=== PATIENT | female | born 1945 | race Caucasian/White ===

== ENCOUNTER 2016-11-27 22:33 | Emergency (ER) | payer MEDICARE, OTHER ==
[2016-11-27 22:46] VITALS: BP 166/119
--- NOTE | 2016-11-28 00:40 | ED ---
Upper Extremity Pain - HPI Summary HPI Summary: Patient presents with 2 1/2 weeks of right wrist pain that began when she "just turned her wrist" and heard a loud pop. She saw her PCP who advised rest, ibuprofen and a neoprene brace for support. Her pain has continued and she worries something is broken. She denies previous injury to this wrist and only has pain when she supinates her wrist. She denies N/T, swelling or bruising. She is left handed but uses the right hand for many tasks. - History of Current Complaint Chief Complaint: EDExtremityUpper Stated Complaint: RIGHT WRIST PAIN Time Seen by Provider: 11/27/16 23:04 Hx Obtained From: Patient Mechanism Of Injury: Twisted Onset/Duration: Started Weeks Ago - 2.5, Atraumatic, Still Present Timing: Constant Severity Initially: Moderate Severity Currently: Moderate Pain Location: Wrist - right Character: Dull, Aching Aggravating Factor(s): Other - supination Alleviating Factor(s): Rest Associated Signs & Symptoms: Positive: Negative Related History: Dominant Hand Left - Allergies/Home Medications Allergies/Adverse Reactions: Allergies Allergy/AdvReac Type Severity Reaction Status Date / Time Penicillins Allergy Severe Hives Verified 11/27/16 22:46 Sulfa Drugs Allergy Severe Hives Verified 11/27/16 22:46 SPIDER BITES Allergy Severe Swelling Uncoded 11/27/16 22:46 BEE STINGS Allergy Intermediate Hives Uncoded 11/27/16 22:46 PMH/Surg Hx/FS Hx/Imm Hx Endocrine/Hematology History: Denies: Hx Diabetes Cardiovascular History: Reports: Hx Hypertension, Hx Myocardial Infarction Denies: Hx Congestive Heart Failure Respiratory History: Reports: Hx Chronic Obstructive Pulmonary Disease (COPD), Hx Pneumonia History: Reports: Hx Kidney Stones Denies: Hx Dialysis, Hx Renal Disease Musculoskeletal History: Reports: Hx Back Problems - DDD Sensory History: Reports: Hx Contacts or Glasses - Right eye Opthamlomology History: Reports: Hx Contacts or Glasses - Right eye Neurological History: Reports: Other Neuro Impairments/Disorders - traumatic brain injury Denies: Hx Migraine, Hx Seizures, Hx Spinal Cord Injury - Surgical History Surgery Procedure, Year, and Place: HYSTERECTOMY, PARATHYROID SURGERY, tonsils 5 times in surgery - Immunization History Date of Tetanus Vaccine: no Date of Influenza Vaccine: no Infectious Disease History: No Infectious Disease History: Denies: Hx Clostridium Difficile, Hx Hepatitis, Hx Human Immunodeficiency Virus (HIV), Hx of Known/Suspected MRSA, Hx Shingles, Hx Tuberculosis, Hx Known/ Suspected VRE, Hx Known/Suspected VRSA, History Other Infectious Disease, Traveled Outside the [place] in Last 30 Days - Family History Known Family History: Positive: None - Social History Occupation: Employed Full-time Lives: With Family Alcohol Use: None Hx Substance Use: No Substance Use Type: Reports: None Hx Tobacco Use: Yes Smoking Status (MU): Former Smoker Have You Smoked in the Last Year: Yes Review of Systems Positive: Arthralgia - right wrist, Decreased ROM - supination. Negative: Edema Negative: Bruising Negative: Weakness, Paresthesia, Numbness All Other Systems Reviewed And Are Negative: Yes Physical Exam Triage Information Reviewed: Yes Vital Signs On Initial Exam: Initial Vitals Temp Pulse Resp BP Pulse Ox 98.4 F 69 15 166/119 99 11/27/16 22:40 11/27/16 22:40 11/27/16 22:40 11/27/16 22:40 11/27/16 22:40 Vital Signs Reviewed: Yes Appearance: Positive: Well-Appearing, Well-Nourished, Pain Distress Skin: Positive: Warm, Skin Color Reflects Adequate Perfusion, Dry, Soft Head/Face: Positive: Normal Head/Face Inspection Eyes: Positive: EOMI, ASHLEY, Conjunctiva Clear ENT: Positive: Hearing grossly normal Respiratory/Lung Sounds: Positive: Breath Sounds Present Cardiovascular: Positive: RRR Musculoskeletal: Positive: Limited @ - FROM except for supination, which is limited to 60 degrees due to pain, Pain @ - TTP ulnar aspect of distal forearm Neurological: Positive: Sensory/Motor Intact, Alert, Oriented to Person Place, Time, NV Bundle Intact Distally, Normal Gait Psychiatric: Positive: Affect/Mood Appropriate AVPU Assessment: Alert - [place] Coma Scale Coma Scale Total: 15 Procedures - Splinting Location: right wrist Pre-Made Type: metal Splint: wrist Pre-Proc Neuro Vasc Exam: normal Post-Proc Neuro Vasc Exam: normal Diagnostics - Vital Signs Vital Signs Temp Pulse Resp BP Pulse Ox 11/28/16 00:31 98 F 69 16 166/119 11/27/16 22:40 98.4 F 69 15 166/119 99 - Laboratory Lab Statement: Any lab studies that have been ordered have been reviewed, and results considered in the medical decision making process. - Radiology No standard instances Xray Interpretation: No Acute Changes Radiology Interpretation Completed By: ED Physician - No obvious deformity Course/Dx - Diagnoses Differential Diagnosis/HQI/PQRI: Positive: Arthritis, Bursitis, Contusion, Fracture (Closed), Hematoma, Strain, Sprain Provider Diagnoses: Right wrist pain Discharge - Discharge Plan Condition: Stable Disposition: HOME Patient Education Materials: Wrist Injury (ED) Referrals: Amauri Braswell MD [Medical Doctor] - Additional Instructions: Please wear the brace to protect your wrist. Use ibuprofen 400-600mg three times daily with meals for the next 5-7 days to decrease swelling and pain. Call Dr. Braswell's office with orthopedics tomorrow for an appointment in the next 1-2 weeks. Return to the emergency department if symptoms worsen.
--- NOTE | 2016-11-28 07:42 | RAD ---
INDICATION: Right wrist pain. TECHNIQUE: 3 views of the right wrist were obtained. FINDINGS: There is mild diffuse soft tissue swelling present. The bones are osteopenic. There is ulnar minus variance of approximately 4 mm. The bones are otherwise in normal alignment. No fracture is seen. IMPRESSION: NO EVIDENCE FOR FRACTURE, IF THE PATIENT'S SYMPTOMS PERSIST RECOMMEND FOLLOW-UP IMAGING.
== END 2016-11-28 00:31 | disposition home or self-care (01) ==
LOC: ED 22:33
DX: M25.531 Pain in right wrist (principal); Z87.891 Personal history of nicotine dependence
CPT/HCPCS: 99282

== ENCOUNTER 2018-12-14 23:14 | Emergency (ER) | payer MEDICARE ==
--- NOTE | 2018-12-14 23:41 | ED ---
Hypertension - HPI Summary HPI Summary: A 73 y/o female presents to [facility] with a chief complaint of high blood pressure today. The patient reports that she was at her friends house when she used their BP monitor because she was feeling fatigued for the past few weeks. Her BP was 244/108 and so she came to the ED. She denies CP. She claims that she is usually short of breath after her traumatic brain injury, but does not believe that it has worsened. She has had high blood pressure before but does not take medication for it. She denies any change in diet. She notes that she had two cups containing caffeine in the morning and one tonight. She also reports a Hx of [place]. - History of Current Complaint Chief Complaint: EDHypertension Stated Complaint: "HIGH BP/TIREDNESS" PER PT Time Seen by Provider: 12/14/18 23:32 Hx Obtained From: Patient Onset/Duration: Started Hours Ago, Still Present Timing: Constant Reported Blood Pressure Prior To Arrival: 244/108 Aggravating Factor(s): Nothing Alleviating Factor(s): Nothing Associated Signs & Symptoms: Negative - Chest pain, worsened SOB - Allergies/Home Medications Allergies/Adverse Reactions: Allergies Allergy/AdvReac Type Severity Reaction Status Date / Time MS Penicillins [Penicillins] Allergy Severe Hives Verified 11/27/16 22:46 MS Sulfa Drugs [Sulfa Drugs] Allergy Severe Hives Verified 11/27/16 22:46 Penicillins Allergy Hives Verified 12/14/18 23:21 Sulfa (Sulfonamide Allergy Hives Verified 12/14/18 23:21 Antibiotics) SPIDER BITES Allergy Severe Swelling Uncoded 11/27/16 22:46 BEE STINGS Allergy Intermediate Hives Uncoded 11/27/16 22:46 PMH/Surg Hx/FS Hx/Imm Hx Endocrine/Hematology History: Denies: Hx Diabetes Cardiovascular History: Reports: Hx Hypertension, Hx Myocardial Infarction Denies: Hx Congestive Heart Failure Respiratory History: Reports: Hx Chronic Obstructive Pulmonary Disease (COPD), Hx Pneumonia History: Reports: Hx Kidney Stones Denies: Hx Dialysis, Hx Renal Disease Musculoskeletal History: Reports: Hx Back Problems - DDD Sensory History: Reports: Hx Contacts or Glasses - Right eye Opthamlomology History: Reports: Hx Contacts or Glasses - Right eye Neurological History: Reports: Other Neuro Impairments/Disorders - traumatic brain injury Denies: Hx Migraine, Hx Seizures, Hx Spinal Cord Injury - Surgical History Surgery Procedure, Year, and Place: HYSTERECTOMY, PARATHYROID SURGERY, tonsils 5 times in surgery - Immunization History Date of Tetanus Vaccine: no Date of Influenza Vaccine: no Infectious Disease History: No Infectious Disease History: Denies: Hx Clostridium Difficile, Hx Hepatitis, Hx Human Immunodeficiency Virus (HIV), Hx of Known/Suspected MRSA, Hx Shingles, Hx Tuberculosis, Hx Known/ Suspected VRE, Hx Known/Suspected VRSA, History Other Infectious Disease, Traveled Outside the [place] in Last 30 Days - Family History Known Family History: Negative: Blood Disorder - Social History Alcohol Use: None Hx Substance Use: No Substance Use Type: Reports: None Hx Tobacco Use: Yes Smoking Status (MU): Former Smoker Have You Smoked in the Last Year: Yes Review of Systems Positive: Fatigue. Negative: Fever Positive: Other - positive: high blood pressure. Negative: Chest Pain Negative: Shortness Of Breath - worsened All Other Systems Reviewed And Are Negative: Yes Physical Exam - Summary Physical Exam Summary: Appearance: Well-appearing, Well-nourished, lying in bed comfortably Skin: Warm, dry, no obvious rash Eyes: sclera anicteric, no conjunctival pallor ENT: mucous membranes moist, pharynx appears normal Neck: Supple, nontender Respiratory: Clear to auscultation, no signs of respiratory distress Cardiovascular: Normal S1, S2. No murmurs. Normal distal pulses in tibial and radial bilaterally. Abdomen: Soft, nontender, normal active bowel sounds present Musculoskeletal: Normal, Strength/ROM Intact Neurological: A&Ox3, awake and alert, mentation is normal, speech is fluent and appropriate Psychiatric: affect is normal, does not appear anxious or depressed Triage Information Reviewed: Yes Vital Signs On Initial Exam: Initial Vitals Temp Pulse Resp BP Pulse Ox 97.8 F 89 18 223/113 97 12/14/18 23:16 12/14/18 23:16 12/14/18 23:16 12/14/18 23:16 12/14/18 23:16 Vital Signs Reviewed: Yes Diagnostics - Vital Signs Vital Signs Temp Pulse Resp BP Pulse Ox 12/14/18 23:16 97.8 F 89 18 223/113 97 - Laboratory Result Diagrams: 12/15/18 00:00 12/15/18 00:00 Lab Statement: Any lab studies that have been ordered have been reviewed, and results considered in the medical decision making process. - Radiology CXR Radiology Interpretation Completed By: ED Physician Summary of Radiographic Findings: no acute process. Pending official imaging report. - EKG 00:40 Cardiac Rate: NL - 70 bpm EKG Rhythm: Sinus Rhythm Summary of EKG Findings: NSR at 70 BPM, P waves, QRS complex, and T waves are within normal limits, T waves and intervals are normal, no ischemic changes. This is a normal EKG. Hypertension Course/Dx - Course Course Of Treatment: A 73 y/o female presents to [facility] with a chief complaint of high blood pressure today. The patient reports that she was at her friends house when she used their BP monitor because she was feeling fatigued for the past few weeks. The physical exam was unremarkable. CXR showed no acute process. EKG at 00:40 showed NSR at 70 BPM, P waves, QRS complex, and T waves are within normal limits, T waves and intervals are normal, no ischemic changes. This is a normal EKG. Bloodwork and chemistries obtained and are WNL. Urines obtained. Urine blood 1+, Urine RBC 1+, Ur Squamous Epith Cells present. The patient will be discharged home and follow up with her PCP. The patient is agreeable with this plan. - Diagnoses Provider Diagnoses: High blood pressure, Fatigue Discharge - Sign-Out/Discharge Documenting (check all that apply): Patient Departure - DC Patient Received Moderate/Deep Sedation with Procedure: No - Discharge Plan Condition: Good Disposition: HOME Patient Education Materials: Hypertension (ED) Referrals: Maribel Thao MD [Primary Care Provider] - 2 Days Additional Instructions: The tests we did tonight did not show any acute injury to you from the elevated blood pressure, which is what I expected. By definition we cannot diagnose hypertension with one day's worth of readings, so I would recommend you check in with your primary care provider on Sunday and schedule a followup visit. I would not recommend any medication for this problem at present. - Billing Disposition and Condition Condition: GOOD Disposition: Home - Attestation Statements Document Initiated by Scribe: Yes Documenting Scribe: Braulio Truong Provider For Whom Scribe is Documenting (Include Credential): Carlo Cha MD Scribe Attestation: I, Braulio Truong, scribed for Carlo Cha MD on 12/16/18 at 1311. Scribe Documentation Reviewed: Yes Provider Attestation: The documentation as recorded by the scribe, Braulio Truong accurately reflects the service I personally performed and the decisions made by me, Carlo Cha MD Status of Scribe Document: Viewed
[2018-12-15 00:18] LABS: ABS Basophils 0.1 10^3/ul (0-0.2); ABS Eosinophils 0.3 10^3/ul (0-0.6); ABS Lymphocytes 3.5 10^3/ul (1.0-4.8); ABS Monocytes 1.1 10^3/ul (0-0.8); ABS Neutrophils 4.7 10^3/ul (1.5-7.7); ABS Nucleated RBC 0 10^3/ul; Eosinophil % 3.1 %; Hematocrit 43 % (33-41); Hemoglobin 14.8 g/dL (12.0-16.0); Lymphocyte % 36.3 %; Mean Corpuscular HGB Conc 34 g/dL (31-36); Mean Corpuscular Hemoglobin 31 pg (27-31); Mean Corpuscular Volume 91 fL (80-97); Nucleated Red Blood Cells % 0.1; Platelet Count 341 10^3/uL (150-450); Red Blood Count 4.77 10^6 /uL (3.70-4.87); Red Cell Distribution Width 14 % (10.5-15); White Blood Count 9.8 10^3/uL (3.5-10.8)
[2018-12-15 00:29] LABS: Albumin/Globulin Ratio 1.5 (1-3); BUN/Creatinine Ratio 14.7 (8-20); Calcium 8.9 mg/dL (8.6-10.3); EGFR African American 63.9 (>60); EGFR Non-African American 52.8 (>60); Globulin 2.6 g/dL (2-4); Total Bilirubin 0.3 mg/dL (0.2-1.0); Total Protein 6.6 g/dL (6.4-8.9)
[2018-12-15 00:47] LABS: TSH (Thyroid Stimulating Horm) 3.15 mcIU/mL (0.34-5.60)
[2018-12-15 01:09] LABS: Potassium 3.8 mmol/L (3.5-5.0)
[2018-12-15 02:01] LABS: Urine Appearance Clear; Urine Bacteria Absent (Absent); Urine Bilirubin Negative (Negative); Urine Blood 1+ (Negative); Urine Color Yellow; Urine Glucose Negative (Negative); Urine Ketones Negative (Negative); Urine Nitrite Negative (Negative); Urine Protein Negative (Negative); Urine Red Blood Cell 1+(3-5/hpf) (Absent); Urine Specific Gravity 1.005 (1.010-1.030); Urine Squamous Epithelial Cell Present (Absent); Urine Urobilinogen Negative (Negative); Urine White Blood Cell Trace(0-5/hpf) (Absent)
[2018-12-15 03:54] VITALS: BP 200/110
== END 2018-12-15 04:05 | disposition home or self-care (01) ==
LOC: ED 23:14
DX: I10 Essential (primary) hypertension (principal); R53.83 Other fatigue; M81.0 Age-related osteoporosis without current pathological fracture; I25.2 Old myocardial infarction; J44.9 Chronic obstructive pulmonary disease, unspecified; Z88.0 Allergy status to penicillin; Z88.2 Allergy status to sulfonamides; Z91.030 Bee allergy status; Z87.891 Personal history of nicotine dependence
CPT/HCPCS: 36415; 71046; 80053; 81003; 81015; 84443; 85025; 87086; 93005; 99283